=== PATIENT | male | born 1980 | race Caucasian/White ===

== ENCOUNTER 2022-10-22 06:39 | Emergency (ER) | payer MEDICAID ==
[2022-10-22] MEDS ORDERED: Octyl 2-Cyanoacrylate 1 g/1 mL 1 APPLIC PEN TOP ONE (07:22)
== END 2022-10-22 08:02 | disposition home or self-care (01) ==
LOC: MW.ED 06:39
DX: S01.311A Laceration without foreign body of right ear, initial encounter (principal); S05.11XA Contusion of eyeball and orbital tissues, right eye, initial encounter; Y04.0XXA Assault by unarmed brawl or fight, initial encounter
CPT/HCPCS: 12011; 99283; A9270

== ENCOUNTER 2023-02-25 05:11 | Emergency (ER) | payer MEDICAID ==
[2023-02-25] MEDS ORDERED: Lidocaine 1% with EPINEPHrine 1:100,000 20 ML MDV INJECT ONE (05:28)
[2023-02-25] MEDS ORDERED: Lidocaine 1% with EPINEPHrine 1:100,000 50 ML MDV ONE (05:29)
[2023-02-25] MEDS ORDERED: Octyl 2-Cyanoacrylate 1 g/1 mL 1 APPLIC PEN TOP ONE (05:41)
[2023-02-25] MEDS ORDERED: Diphtheria,Pertussis(Acell),Tetanus Vaccine 0.5 ML Syringe IM ONE (06:16)
[2023-02-25] MEDS ORDERED: Ibuprofen 600 MG Tab PO ONE (06:17)
[2023-02-25] MEDS ORDERED: Morphine 15 MG Tab PO ONE (06:17)
[2023-02-25] MEDS ORDERED: Acetaminophen 500 MG Tab PO ONE (06:18)
[2023-02-25] MEDS ORDERED: Bacitracin Oint 1 GM U/D Packet TOP ONE (06:29)
== END 2023-02-25 09:06 | disposition home or self-care (01) ==
LOC: MW.ED 05:11
DX: S02.5XXA Fracture of tooth (traumatic), initial encounter for closed fracture (principal); S01.511A Laceration without foreign body of lip, initial encounter; Z72.0 Tobacco use; Z23 Encounter for immunization; V00.142A Scooter (nonmotorized) colliding with stationary object, initial encounter
CPT/HCPCS: 12015; 12051; 70450; 70486; 72125; 90471; 90715; 99284; A9270; 10120; 13152; 13153; 99283; J3490